=== PATIENT | female | born 1965 | race Caucasian/White ===

== ENCOUNTER → 2016-11-28 | Outpatient (CLI) | payer BC ==
--- NOTE | ~2016-11-28 | US5 ---
[facility] A Service of [facility] & [facility] RADIOLOGY TEXT RESULTS PATIENT: JOSE DE JESUS JOHNSON LOCATION: [facility] : 67 UNIT #: [id number] AGE: [address]: RELL Chaney APRN SEX: F ORDER DR: [id number] [facility] [address] [place], [place] [address] [id number] O MR#: [id number] Acc #: [id number] NAME: JOSE DE JESUS JOHNSON : 1965 SEX: F STUDY DATE/TIME: 11/28/2016 10:10 UNIT: [facility] ROOM: STUDY DESCRIPTION: US Abdominal Complete Attending Physician: Rell Cahney Referring Physician: Rell Chaney Ordering Physician: Rell Jensen Aprn Primary Care Physician: Rell Chaney MEDICAL IMAGING REPORT This report is preliminary unless electronic signature is present EXAM Abdominal ultrasound complete 11/28/2016 HISTORY Right upper quadrant abdominal pain for 1 year intermittently status post cholecystectomy in 2016. FINDINGS The liver is homogeneous in echotexture and demonstrates no cystic or solid mass lesions. The intra and extrahepatic bile ducts are not dilated. The gallbladder is surgically absent as per patient history. The common duct measures 6 mm. The pancreas and spleen are normal. The spleen measures 9.3 cm in greatest diameter. The visualized portions of the abdominal aorta and inferior vena cava are within normal limits. The kidneys are normal bilaterally. IMPRESSION Surgical absence of the gallbladder. Otherwise negative abdominal ultrasound. Dictated by... Isaiah Galeana M.D. THIS IS AN ELECTRONICALLY VERIFIED REPORT Isaiah Galeana M.D. at 11/28/2016 3:49 PM KRT/to TD: 11/28/2016 14:54 JOB #: [id number] MEDICAL IMAGING REPORT Page 1 of 1 COPY
== END | disposition home or self-care (01) ==
LOC: CGUS 09:00
DX: K76.9 Liver disease, unspecified (principal); Z90.49 Acquired absence of other specified parts of digestive tract
CPT/HCPCS: 76700